=== PATIENT | female | born 1995 ===

== ENCOUNTER 2017-11-14 15:58 | Emergency (ER) | payer MEDICAID ==
[2017-11-14 16:04] VITALS: BP 105/71; PULSE 89; RESP 14; O2SAT 97
[2017-11-14] MEDS ORDERED: Naloxone 0.4 mg/ml Inj (Adult) ONE (16:21)
[2017-11-14] MEDS ORDERED: Naloxone 0.4 mg/ml Inj (Adult) IVP STA (16:31)
[2017-11-14] MEDS ORDERED: Sodium Chloride 0.9% 1,000 ML IV STA (16:31)
--- NOTE | 2017-11-14 16:40 | ED PDOC ---
HPI: Psych/Substance Abuse Time Seen by Provider: 11/14/17 16:31 Chief Complaint (Nursing): Substance Abuse Chief Complaint (Provider): Alcohol Intoxication History Per: EMS, Family (brother) History/Exam Limitations: no limitations Onset/Duration Of Symptoms: Hrs Current Symptoms Are (Timing): Still Present Suicide/Self Injury Attempted (Context): None Modifying Factor(s): Alcohol Involuntary Hold By: None Additional Complaint(s): 21 year old female brought into the ED by EMS for alcohol intoxication. Patient history given by EMS. As per EMS, the patient was found sitting at a bar highly intoxicated vomiting at a bar. The patients brother reports that she did not eat and had alot to drink. In ED patient was noted to have urinated on herself and vomit was noted on her clothing. Patient was responsive in triage. Past Medical History Reviewed: Historical Data, Nursing Documentation Vital Signs: Last Vital Signs Temp Pulse 89 11/14/17 16:01 Resp 14 11/14/17 16:01 BP 105/71 11/14/17 16:01 Pulse Ox 97 11/14/17 16:01 - Medical History PMH: No Chronic Diseases - Family History Family History: States: Unknown Family Hx - Allergies Allergies/Adverse Reactions: Allergies Allergy/AdvReac Type Severity Reaction Status Date / Time No Known Allergies Allergy Verified 11/14/17 16:04 Physical Exam - Reviewed Nursing Documentation Reviewed: Yes Vital Signs Reviewed: Yes - Physical Exam Head Exam: Negative for: ATRAUMATIC (1 cm abrasion R forehead) Skin: Positive for: Normal Color, Warm, Dry Eye Exam: Positive for: Normal appearance, EOMI, PERRL Cardiovascular/Chest: Positive for: Regular Rate, Rhythm Respiratory: Positive for: Normal Breath Sounds Neurologic/Psych: Positive for: Alert, Other (Intoxicated, moving all extremities). Negative for: Oriented - Laboratory Results Result Diagrams: 11/14/17 17:10 11/14/17 17:10 - ECG O2 Sat by Pulse Oximetry: 97 (RA) Pulse Ox Interpretation: Normal Medical Decision Making Medical Decision Makin Initial Impression 21 year old female presenting with alcohol intoxication Initial Plan: * CT Head w/o Contrast * Alcohol Serum * CMP * Drug Screen * CBC * NS 1000mls IV 1000mls/hr * Narcan 0.4mg IVP * Accucheck * Urinalysis * 1:1 Observation * Reevaluation Accession No. : [id number] Patient Name / ID : SERINA BYRNE / [id number] Exam Date : 11/14/2017 21:23:10 ( Approved ) Study Comment : Sex / Age : F / 21Y Creator : Zander Block MD Dictator : Disability Insurance Claim Examiner : Ferry Hand : Zander Block MD Approver2 : Report Date : 11/14/2017 21:54:00 My Comment : [facility] Division of Radiology [address] [place] [address] Tel. no. Patient Name: CHAVEZ SMALLS Pt. Address: [address] [place] [address] Rec #: [id number] [place] [address]: Meryl Snell MD Pt Order Location: [facility] : 1995 Female Age: 21 Order #: [id number] Reason for exam: Head injury CT Scan HEAD W/O CONTRAST Exam Date: 11/14/17 This imaging exam was performed at [facility] EXAM: CT Head Without Intravenous Contrast CLINICAL HISTORY: 21 years old, female; Injury or trauma; Injury Falling ETOH. N v; Initial encounter; Laceration; Consciousness not specified; Without residual foreign body; Head, generalized; Injury date: Today; Additional info: Head injury TECHNIQUE: Axial computed tomography images of the head/brain without intravenous contrast. All CT scans at this facility use one or more dose reduction techniques, viz.: automated exposure control; ma/kV adjustment per patient size (including targeted exams where dose is matched to indication; i.e. head); or iterative reconstruction technique. Coronal and sagittal reformatted images were created and reviewed. COMPARISON: No relevant prior studies available. FINDINGS: Brain: No intracranial hemorrhage. No mass. No edema. Ventricles: No hydrocephalus. Bones/joints: No acute fracture. Incomplete closure of C1 ring, normal variant. Soft tissues: Unremarkable. Sinuses: Near complete opacification of LEFT sphenoid sinus. Moderate mucosal thickening/air-fluid level of LEFT maxillary sinus. Air-fluid level of RIGHT maxillary sinus. Mild mucosal thickening of LEFT ethmoid sinus. Scattered minimal mucosal thickening of remaining sinuses. Mastoid air cells: No mastoid effusion. No mastoid effusion. Orbits: Unremarkable as visualized. IMPRESSION: 1. No intracranial hemorrhage. 2. Sinus disease. 3. Incidental/non-acute findings are described above. Dictated By: Zander Block MD Dictated Date/Time: 11/14/172153 Signed By: Zander Block MD Date Signed: 2153 Transcribed By: ANATOLIY Transcribe Date/Time : 11/14/172153 ACYP02/ELISEO 20:45 Pt AAOX3, states she drank few [employer] iced teas, no drug use. Ambulated to bathroom with sister without difficulty. Sister at bedside, will take patient home and observe overnight. Documented by Roshni Dover acting as a scribe for Meryl Snell MD. All medical record entries made by the Scribe were at my direction and personally dictated by me. I have reviewed the chart and agree that the record accurately reflects my personal performance of the history, physical exam, medical decision making, and the department course for this patient. I have also personally directed, reviewed, and agree with the discharge instructions and disposition. Disposition - Clinical Impression Clinical Impression: Alcohol intoxication, Head injury - Disposition Referrals: [facility] [Outside] Disposition: Routine/Home Disposition Time: 22:05 Condition: IMPROVED Instructions: Minor Head Injury, Alcohol Poisoning (DC) Forms: [facility] ([place]), [facility] ED School/Work Excuse
[2017-11-14] MEDS ORDERED: Lidocaine 1% Inj (20ml) ONE (16:43)
[2017-11-14 17:17] LABS: BASO % 0.3 % (0.0-2.0); EOS # 0.1 K/uL (0.0-0.7); HEMOGLOBIN 14.2 g/dL (12.0-16.0); LYMPH # 2.2 K/uL (1.0-4.3); LYMPH % 22.9 % (20.0-40.0); MEAN CELL VOLUME 88.9 fl (81.0-99.0); MEAN CORPUSCULAR HEMOGLOBIN 29.9 pg (27.0-31.0); MEAN CORPUSCULAR HGB CONC 33.6 g/dL (33.0-37.0); MEAN PLATELET VOLUME 9.8 fl (7.2-11.7); MONO # 0.3 K/uL (0.0-0.8); MONO % 3.5 % (0.0-10.0); NEUT # 6.8 K/uL (1.8-7.0); NEUT % 72.3 % (50.0-75.0); NRBC % 0.1 % (0.0-0.0); RBC 4.74 Mil/uL (3.80-5.20); RED CELL DISTRIBUTION WIDTH 12.1 % (11.5-14.5); WHITE BLOOD COUNT 9.4 K/uL (4.8-10.8)
[2017-11-14 17:26] LABS: ALB/GLOB RATIO 1.2 (1.0-2.1); ALBUMIN 4.2 g/dL (3.5-5.0); ALT/SGPT 32 U/L (9-52); AST/SGOT 21 U/L (14-36); BLOOD UREA NITROGEN 11 mg/dl (7-17); CALCIUM 8.5 mg/dL (8.4-10.2); GFR AFRICAN-AMERICAN > 60; GFR NON-AFRICAN AMERICAN > 60
[2017-11-14] MEDS ORDERED: Potassium Chloride 20 mEq ER Tab PO STA (18:18)
[2017-11-14] MEDS ORDERED: Potassium Chloride 20 mEq ER Tab PO ONE (19:31)
[2017-11-14 20:13] LABS: SQUAMOUS EPITHIAL 1 /hpf (0-5); URINE BACTERIA RARE (<OCC); URINE BILIRUBIN NEGATIVE (NEGATIVE); URINE BLOOD NEGATIVE (NEGATIVE); URINE CLARITY CLEAR (Clear); URINE COLOR STRAW (YELLOW); URINE GLUCOSE (UA) NEG (Normal); URINE LEUKOCYTE ESTERASE TRACE Leu/uL (Negative); URINE NITRATE NEGATIVE (NEGATIVE); URINE PROTEIN NEGATIVE (NEGATIVE); URINE UROBILINOGEN 0.2-1.0 mg/dL (0.2-1.0)
[2017-11-14 20:28] LABS: BARBITURATES, UR NEGATIVE (NEGATIVE); BENZODIAZEPINES, UR NEGATIVE (NEGATIVE); OPIATES, UR NEGATIVE (NEGATIVE); PHENCYCLIDINE, UR NEGATIVE (NEGATIVE)
--- NOTE | 2017-11-14 21:55 | CT ---
EXAM: CT Head Without Intravenous Contrast CLINICAL HISTORY: 21 years old, female; Injury or trauma; Injury Falling ETOH. N v; Initial encounter; Laceration; Consciousness not specified; Without residual foreign body; Head, generalized; Injury date: Today; Additional info: Head injury TECHNIQUE: Axial computed tomography images of the head/brain without intravenous contrast. All CT scans at this facility use one or more dose reduction techniques, viz.: automated exposure control; ma/kV adjustment per patient size (including targeted exams where dose is matched to indication; i.e. head); or iterative reconstruction technique. Coronal and sagittal reformatted images were created and reviewed. COMPARISON: No relevant prior studies available. FINDINGS: Brain: No intracranial hemorrhage. No mass. No edema. Ventricles: No hydrocephalus. Bones/joints: No acute fracture. Incomplete closure of C1 ring, normal variant. Soft tissues: Unremarkable. Sinuses: Near complete opacification of LEFT sphenoid sinus. Moderate mucosal thickening/air-fluid level of LEFT maxillary sinus. Air-fluid level of RIGHT maxillary sinus. Mild mucosal thickening of LEFT ethmoid sinus. Scattered minimal mucosal thickening of remaining sinuses. Mastoid air cells: No mastoid effusion. No mastoid effusion. Orbits: Unremarkable as visualized. IMPRESSION: 1. No intracranial hemorrhage. 2. Sinus disease. 3. Incidental/non-acute findings are described above.
== END 2017-11-14 22:47 | disposition home or self-care (01) ==
LOC: H.ER 15:58
DX: F10.129 Alcohol abuse with intoxication, unspecified (principal); S09.90XA Unspecified injury of head, initial encounter; W19.XXXA Unspecified fall, initial encounter; Y92.89 Other specified places as the place of occurrence of the external cause
CPT/HCPCS: 70450; 80053; 80320; 80324; 80345; 80346; 80349; 80353; 80358; 80361; 81003; 83992; 85025; 96374; 99284; J2310; J7040